=== PATIENT | female | born 1940 | race Caucasian/White ===

== ENCOUNTER 2017-05-09 21:42 | Inpatient (IN) ==
[2017-05-09] MEDS ORDERED: SODIUM CHLORIDE 0.9% 500 ML IV STA (23:03)
[2017-05-09 23:31] LABS: Basophils # 0.1 10*3/uL (0.0-0.2); Basophils % 0.7 % (0.0-0.8); Eosinophils # 0.5 10*3/uL (0.0-0.87); Eosinophils % 6.9 % (0.00-10.9); Hematocrit 36.8 VOL% (35.7-47.0); Hemoglobin 12.3 GM/DL (12.0-16.0); Immature Granulocytes % 0.3 %; Immature Granulocytes Absolute 0.02 #; Lymphocytes # 1.8 10*3/uL (1.4-4.0); Lymphocytes % 27.4 % (21.3-54.2); Mean Corpuscular HGB Conc 33.4 GM/DL (32-36); Mean Corpuscular Hemoglobin 31 PG (27-34); Mean Corpuscular Volume 91.3 FL (87-102); Mean Platelet Volume 9.7 FL (9.6-12.0); Monocytes # 0.5 10*3/uL (0.11-0.8); Monocytes % 7.5 % (1.7-12.7); Neutrophils # 3.8 10*3/uL (1.4-7.4); Neutrophils % 57.2 % (38.7-73.9); Platelet Count 238 T/CUMM (130-400); Red Blood Count 4.03 MC/CUMM (3.8-5.5); Red Cell Distribution Width 14.1 % (9.3-17.3); White Blood Count 6.7 T/CUMM (4-12)
[2017-05-09 23:43] LABS: PT Patient Result 10.4 SECS
[2017-05-09 23:55] LABS: Ammonia 23 UMOL/L (11-32)
[2017-05-09 23:56] LABS: Alanine Aminotransferase 16 U/L (13-56); Albumin 3.1 G/DL (3.4-5.0); Alkaline Phosphatase 137 U/L (45-117); Aspartate Amino Transferase 12 U/L (0-37); Bilirubin,Total < 0.39 MG/DL (0.2-1.0); Blood Urea Nitrogen 27 MG/DL (7-18); Glucose 119 MG/DL (74-106); Magnesium 2.3 MG/DL (1.8-2.4); Sodium 143 MMOL/L (136-145); Total Protein 5.8 G/DL (6.4-8.3); Troponin I Only < 0.015 NG/ML (0.00-0.045)
[2017-05-09 23:56] LABS: Apearance,Urine CLEAR (Clear); Bacteria,Urine Occasional /HPF (Few); Bilirubin,Urine Negative (Negative); Blood, Urine Small mg/dL (Negative); Glucose,Urine (UA) Negative (Negative); Ketones,Urine 5 mg/dL (Negative); Mucus,Urine Many /LPF (Occasional); Nitrite,Urine Negative (Negative); Protein,Urine 30 MG/DL; RBC,Urine <1 /HPF (0-4); Squamous Epithelial Cell,Urine Occasional /HPF (0-10); Urine Color Yellow (Yellow); Urine Specific Gravity 1.031 (1.001-1.035); WBC,Urine 2 /HPF (0-6)
[2017-05-10 00:08] LABS: Barbiturates Screen,Urine Negative (Negative); Benzodiazepines Screen,Urine Positive (Negative); Cannabinoid Screen,Urine Negative (Negative); Opiate Screen,Urine Negative (Negative); Phencyclidine Screen,Urine Negative (Negative)
[2017-05-10 00:12] LABS: Prolactin 9.4 NG/ML
[2017-05-10] MEDS ORDERED: PHENYTOIN INJ 1,000 MG in SODIUM CHLORIDE 0.9% 100 ML IV STA (00:52)
--- NOTE | 2017-05-10 00:59 | Emergency Department Note ---
Tami Loving Mantricia, am scribing for, and in the presence of, Dawit Rose MD 23:20. Milton Loving Charles R, MD, personally performed the services described in this documentation, ascribed by Robin Garrett in my presence, and it is both accurate and complete . Arrival - Arrival Chief Complaint: Altered Mental Status Stated Complaint: altered mental status ED Nursing Triage Note: confusion, "stares into space", unable to identify family members Mode of Arrival: Stretcher Limitations: Altered Mental Status Source: Significant other, Family Time Seen by Provider: 05/09/17 22:33 - History of Present Illness HPI Narrative: Pt is a 77 y/o female arriving to ED for evaluation of AMS that onset 1500 today. Family states that pt has been, "staring into face," very sleepy, confused, and unable to talk. They report that this is unusual of her, being that she is usually the talker of the family. states that he was here at hospital,today, for an EKG and normally pt usually asks the doctors questions ; however, he noticed that she was speechless and was not able to recall anything about the visit to her daughter. Pt had skin cancer removed yesterday; daughter initially thought that pt was still under the antihistamine but realized that it had been well over the hours for it to had worn off. She states that pt slept all day yesterday after her surgery and all night. Pt has a PMHx of [place], leg seizures, and hand tremors. 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 Arguelles and pt is currently taking Plavix. Family denies that pt has taken any narcotics. At time of exam, pt is easily aroused and seems to want to respond to questions, but cannot. No other complaints were reported to ED. Onset (ago): hour(s) Consistency: constant Allergies/Adverse Reactions: Allergies Allergy/AdvReac Type Severity Reaction Status Date / Time No Known Allergies Allergy Unverified 02/06/17 14:00 Home Medications: Home Medications Medication Instructions Recorded Confirmed Type Amitriptyline HCl 75 mg PO QPM 02/06/17 02/06/17 History Amlodipine Besylate 5 mg PO DAILY 02/06/17 02/06/17 History Clopidogrel [Plavix] 75 mg PO DAILY 02/06/17 02/06/17 History Levothyroxine Tab [Synthroid Tab] 50 mcg PO QAM 02/06/17 02/06/17 History Losartan Potassium 100 mg PO DAILY 02/06/17 02/06/17 History Metoprolol Tartrate Tab [Lopressor 25 mg PO BID 02/06/17 02/06/17 History Tab] Montelukast Tab [Singulair Tab] 10 mg PO BEDTIME 02/06/17 02/06/17 History PARoxetine HCl [Paroxetine HCl] 40 mg PO QAM 02/06/17 02/06/17 History Phenytoin ER Cap [Dilantin Cap] 200 mg PO BID 02/06/17 02/06/17 History Spironolactone 25 mg PO DAILY 02/06/17 02/06/17 History Pantoprazole Tab [Protonix Tab] 40 mg PO DAILY #30 tablet 02/07/17 Rx Review of System - Review of System ROS unobtainable: due to mental status 12 point system: reviewed and no additional remarkable complaints except as stated - Review of System Respiratory: Absent: cough Cardiovascular: Absent: chest pain Gastrointestinal: Absent: abdominal pain, nausea, vomiting, diarrhea Neurological: Present: confusion. Absent: headache, weakness Medical,Surgical,& Family Hx - Medical History Cardio: History of: CAD, Hypertension, [place] Endocrine: History of: Thyroid Disorder Gastrointestinal: History of: GERD - Surgical History Cardiac Surgeries: Sugical HX of: Cardiac Catheterization (stents) Reproductive Surgeries: Surgical HX of;: Hysterectomy - Family History Family History: Reports;: Family Heart Disease, Family Hypertension - Social History Smoking Status: Never smoker Frequency of Alcohol Use: None Type of Drug Use: None Exam Vital Signs: Vital Signs Temperature 98.9 F 05/09/17 21:45 Pulse Rate 54 L 05/09/17 22:20 Respiratory Rate 20 05/09/17 22:20 Blood Pressure 160/77 05/09/17 22:20 O2 Sat by Pulse Oximetry 94 L 05/09/17 22:20 - Head Head exam: Present: atraumatic, normocephalic, normal inspection - Eye Eye exam: Present: normal appearance, PERRL, EOMI - ENT ENT exam: Present: normal exam, normal oropharynx, mucous membranes moist, TM's normal bilaterally, normal external ear exam - Neck Neck exam: Present: normal inspection, full ROM, trachea midline. Absent: tenderness - Chest Chest inspection: Present: normal inspection, symmetric chest wall rise. Absent : tenderness - Respiratory Respiratory exam: Present: normal lung sounds bilaterally - Cardiovascular Cardiovascular exam: Present: regular rate, normal rhythm, normal heart sounds - Abdominal Exam Abdominal exam: Present: soft, normal bowel sounds. Absent: distention, tenderness, guarding, rebound - Extremities Exam Extremities exam: Present: normal inspection, full ROM, normal capillary refill , other (negative Babinski's Sign test; +1 LE edema bilat). Absent: tenderness , pedal edema - Back Exam Back exam: Present: normal inspection, full ROM. Absent: tenderness - Neurological Exam Neurological exam: Present: reflexes normal. Absent: alert, oriented X3 - Psychiatric Psychiatric exam: Present: normal affect, normal mood - Skin Skin exam: Present: warm, dry, intact, normal color Course - Reevaluation(s) Reevaluation #1: Patient reexamined she is doing slightly better still talking out of her head but she is now talking earlier she was had. Expressive aphasia Time: 00:56 - Consultations Consultation #1: Hospitalist will admit patient Time: 00:57 Results - Labs CBC & BMP: 05/09/17 23:13 05/09/17 23:13 Lab Results: I have reviewed the patients labs - EKG EKG results: interpreted by VIRALD - Impressions EKG shows right bundle branch block bradycardia - Diagnostic Findings Procedure: Chest x-ray: image reviewed by me (Negative), CT: report reviewed by me, image reviewed by me (CT head negative) Critical Care Time Critical Care Time: Yes Total Critical Care Time: 60 Disposition Clinical Impression: Altered mental status, Subtherapeutic serum dilantin level, Confusion, Expressive aphasia, History of seizure disorder, Mild dehydration Case discussed with: patient, patient's family Disposition: Still a Patient Condition: Stable Time of Disposition: 00:56 NIH Stroke Score - Stroke Score Initial Assessment Level of Consciousness: Drowsy Level of Consciousness Questions: Both Incorrect Level of Consciousness Commands: Obeys Both Correctly Best Gaze: Normal Visual Leach: No Visual Loss Facial Palsy: Normal Motor - Right Arm: No Drift Motor - Left Arm: No Drift Motor - Right Leg: No Drift Motor - Left Leg: No Drift Limb Ataxia: Absent Sensory (Pin Prick): Normal Best Language: Severe Aphasia Dysarthria: Near Unintelligible or Worse Extinction / Inattention (Neglect): No Neglect NIH Stroke Score: 7
[2017-05-10] MEDS ORDERED: PHENYTOIN 250 MG/5 ML VIAL IV ONE (01:16)
[2017-05-10] MEDS ORDERED: ACETAMINOPHEN 325 MG TABLET PO PRN (01:47)
[2017-05-10] MEDS ORDERED: ONDANSETRON 4 MG/2 ML VIAL IV PRN (01:47)
--- NOTE | 2017-05-10 01:56 | Hospitalist History & Physical ---
Assessment and Plan (1) TIA (transient ischemic attack) Status: Acute Assessment and plan: Admit to telemetry. Consult neurology. Resume home medications including Plavix. Check lipid panel, hemoglobin A1c. Carotid ultrasound and 2D echo. Consider MRI. Symptoms have resolved. Current Visit: Yes (2) Altered mental status Status: Resolved Current Visit: Yes (3) Subtherapeutic serum phenytoin level Status: Acute Assessment and plan: Patient received IV Dilantin in the emergency department. It does not appear that she had any seizure activity. Current Visit: Yes (4) Expressive aphasia Status: Resolved Assessment and plan: Expressive aphasia resolved by the time I saw her in the emergency department at 1:30 AM. Continue to monitor and workup for stroke. Current Visit: Yes (5) History of seizure disorder Status: Chronic Assessment and plan: Continue Dilantin Current Visit: Yes (6) Mild dehydration Status: Acute Assessment and plan: IV fluids ordered Current Visit: Yes History of Present Illness Chief complaint: AMS/Confusion History of present illness: Ms. Toribio is a 77 year old female presented to the ER for evaluation of AMS that onset 1500 today. Family states that pt has been, "staring into space," very sleepy, confused, and unable to talk. They report that this is unusual of her, being that she is usually the talker of the family. states that he was here at hospital,today, for an EKG and normally pt usually asks the doctors questions; however, he noticed that she was speechless and was not able to recall anything about the visit to her daughter. Pt had skin cancer removed yesterday- from her nose. Daughter initially thought that pt was still under the effects of the anesthesia but realized that the time frame was much longer than expected. The patient was reportedly well at 7 AM and deteriorated around 2:30 PM. She states that pt slept all day yesterday after her surgery and all night. Pt has a PMHx of [place], leg seizures, and hand tremors. 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 Arguelles and pt is currently taking Plavix. Family denies that pt has taken any narcotics. At time of exam, the patient's symptoms had resolved. Her speech was back to normal. I examined her at 1:30 in the morning in the emergency department with both of her daughters at the bedside. They report significant improvement in her symptoms. She will be admitted for workup of TIA versus stroke Home Medications Medication Instructions Recorded Confirmed Type Amitriptyline HCl 75 mg PO QPM 02/06/17 05/10/17 History Amlodipine Besylate 5 mg PO DAILY 02/06/17 05/10/17 History Clopidogrel [Plavix] 75 mg PO DAILY 02/06/17 05/10/17 History Levothyroxine Tab [Synthroid Tab] 50 mcg PO QAM 02/06/17 05/10/17 History Losartan Potassium 100 mg PO DAILY 02/06/17 05/10/17 History Metoprolol Tartrate Tab [Lopressor 25 mg PO BID 02/06/17 05/10/17 History Tab] Montelukast Tab [Singulair Tab] 10 mg PO BEDTIME 02/06/17 05/10/17 History PARoxetine HCl [Paroxetine HCl] 40 mg PO QAM 02/06/17 05/10/17 History Phenytoin ER Cap [Dilantin Cap] 200 mg PO BID 02/06/17 05/10/17 History Spironolactone 25 mg PO DAILY 02/06/17 05/10/17 History Pantoprazole Tab [Protonix Tab] 40 mg PO DAILY #30 tablet 02/07/17 05/10/17 Rx Allergies Allergy/AdvReac Type Severity Reaction Status Date / Time No Known Allergies Allergy Unverified 02/06/17 14:00 Medical,Surgical,& Family Hx - Medical History Cardio: History of: CAD, Hypertension, [place] Endocrine: History of: Thyroid Disorder Gastrointestinal: History of: GERD - Surgical History Cardiac Surgeries: Sugical HX of: Cardiac Catheterization (stents) Reproductive Surgeries: Surgical HX of;: Hysterectomy - Family History Family History: Reports;: Family Heart Disease, Family Hypertension - Social History Smoking Status: Never smoker Frequency of Alcohol Use: None Type of Drug Use: None Marital Status: Lives With:: Spouse Functional capacity: independent ambulation 12 point system: reviewed and no additional remarkable complaints except as stated - Constitutional Constitutional: Present: as per HPI Exam - Constitutional Vitals: Period Temp Pulse Resp BP Sys/Gonzalez Pulse Ox Last 24 Hr 98.9 F-98.9 F 54-54 20-20 160-190/77-86 94-95 Exam: Constitutional System: No distress. No tremulousness. Head: Normocephalic, atraumatic. Ears, Nose and Throat System: No pain or tenderness. No epistaxis or discharge Eyes System: Pupils equal, round, and reactive. Extraocular muscles intact. Neck: Supple, without adenopathy, No jugular venous distention. No thyromegaly, neck mass, or prior surgery apparent. Respiratory System: Chest clear to auscultation. Cardiovascular System: Heart with regular rate and rhythm. No murmur. GI System: Abdomen soft, nontender. Normo active bowel sounds present. Musculoskeletal System: limbs with no pedal edema. Full distal pulses. Neurological System: No discernable sensory deficit. No aphasia. Strength and sensation are equal in the bilateral upper and lower extremities Psychiatric System: Conversation is rational Results - Labs CBC & BMP: 05/10/17 03:06 05/10/17 03:06 Lab Results: I have reviewed the past 24 hour labs - Diagnostic Findings Procedure: Chest x-ray: image reviewed by me, report reviewed by me Quality Measures - Stroke Onset of Symptoms Date: 05/09/17 Onset of Symptoms Time: 15:00 Symptom Onset Unknown: No
[2017-05-10 02:05] LABS: Sedimentation Rate-Westergren 16 MM/HR (0-30)
[2017-05-10] MEDS: SODIUM CHLORIDE 0.9% 1,000 ML IV SCH ×2 (03:08→12:35)
[2017-05-10 04:07] LABS: Basophils % 0.7 % (0.0-0.8); Eosinophils # 0.4 10*3/uL (0.0-0.87); Eosinophils % 6.7 % (0.00-10.9); Hematocrit 36.7 VOL% (35.7-47.0); Hemoglobin 12.1 GM/DL (12.0-16.0); Immature Granulocytes % 0.5 %; Immature Granulocytes Absolute 0.03 #; Lymphocytes % 33.1 % (21.3-54.2); Mean Corpuscular Hemoglobin 30 PG (27-34); Mean Corpuscular Volume 91.8 FL (87-102); Mean Platelet Volume 10.1 FL (9.6-12.0); Monocytes # 0.5 10*3/uL (0.11-0.8); Monocytes % 7.9 % (1.7-12.7); Neutrophils % 51.1 % (38.7-73.9); Platelet Count 230 T/CUMM (130-400); White Blood Count 5.9 T/CUMM (4-12)
[2017-05-10 04:31] LABS: Calcium 8.8 MG/DL (8.5-10.1); Magnesium 2.3 MG/DL (1.8-2.4); Osmolality,Calculated 291.8 MOS/KG (273-304)
[2017-05-10 04:41] LABS: Risk Ratio 2.35; Thyroid Stimulating Hormone 3.1 uIU/ml (0.358-3.74); VLDL CHOLESTEROL 24.4 MG/DL
[2017-05-10] MEDS: ENOXAPARIN 40 MG/0.4 ML SYRINGE SUBCUT SCH (05:17)
--- NOTE | 2017-05-10 06:02 | CT Report ---
Exam: CT scan of brain without contrast Date: 05/09/2017 Indication: Mental status changes Comparison: 02/06/2017 Patient's classification: Emergency department Technical: Images were obtained from the skull base to the vertex without the use of intravenous contrast. Dose reduction was performed with decreasing kv and mA and automated exposure Total DLP: 1012.1. mGy*cm Findings: Study was initially reviewed by [facility]. The brainstem and cerebellum are unremarkable. Examination reveals old lacunar infarctions involving the basal ganglia regions bilaterally. Small vessel ischemic changes are present. There is hyperostosis frontalis interna changes present. There is inflammation within the left maxillary antrum. Mild inflammation in the ethmoid sinuses bilaterally. The frontal sinuses and right maxillary sinuses and mastoids are unremarkable. Vascular plaque is present. Calvarium is intact. Impression: 1. Diffuse small vessel ischemic change with multiple areas of old lacunar infarctions present. If further evaluation is warranted MRI may be more sensitive. 2. No obvious acute hemorrhage present. PROCEDURE INTERPRETED AT [facility] DEPARTMENT OF RADIOLOGY Final Report Signed by: Dr. Blake Harris
--- NOTE | 2017-05-10 06:26 | XRay Report ---
Exam: XR chest 1V portable Date: 05/09/2017 11:04 PM Indication: Altered mental status Comparison: 02/06/2017 Technical: AP portable Findings: Cardiomegaly present. External cardiac leads are present. No obvious consolidating infiltrate or effusion. The bony structures reveal no acute findings. Degenerative arthritic changes are present at the AC joints bilaterally Previous right axillary dissection clips noted. No pneumothorax. The mediastinum is intact. Impression: 1. Cardiomegaly without decompensation. 2. Previous surgical changes in the right axillary/breast region. PROCEDURE INTERPRETED AT [facility] DEPARTMENT OF RADIOLOGY Final Report Signed by: Dr. Blake Harris
--- NOTE | 2017-05-10 07:08 | Ultrasound Report ---
Exam: US carotid duplex BI Date: 05/10/2017 1:51 AM Indication: TIA Findings: Grayscale color flow analysis and spectral analysis imaging was performed with image stored and captured. Right Flow velocities centimeters per second Common carotid artery: 63 Proximal ICA: 45 Distal ICA: 59 External carotid artery: 112 Vertebral artery: 40 ICA/CCA ratio: 0.9 Measurements in millimeters Distal ICA: 5.6 Left: Flow velocities centimeters per second Common carotid artery: 51 Proximal ICA: 45 Distal ICA: 51 External carotid artery: 93 Vertebral artery: 48 ICA/CCA ratio: 1. Measurements in millimeters Distal ICA: 4.3 Triphasic waveforms are present. No high-grade stenosis or occlusions are significant plaque present with normal color flow. Impression: 1. 0-15% stenosis bilaterally. Today studies were performed utilizing indirect NASCET criteria The ultrasound images were stored and captured PROCEDURE INTERPRETED AT [facility] DEPARTMENT OF RADIOLOGY Final Report Signed by: Dr. Blake Harris
--- NOTE | 2017-05-10 08:56 | EKG Report ---
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
[2017-05-10] MEDS ORDERED: amLODIPine 5 MG TABLET PO SCH (09:00)
[2017-05-10] MEDS: LEVOTHYROXINE 50 MCG TABLET PO SCH (09:04)
[2017-05-10] MEDS: PHENYTOIN ER 100 MG CAPSULE PO SCH ×2 (09:05→20:56)
[2017-05-10] MEDS: CLOPIDOGREL 75 MG TABLET PO SCH (09:05)
[2017-05-10] MEDS: METOPROLOL TARTRATE 25 MG TABLET PO SCH ×2 (09:05→22:39)
[2017-05-10] MEDS: LOSARTAN 50 MG TABLET PO SCH (09:05)
--- NOTE | 2017-05-10 14:28 | Hospitalist Progress Note ---
Assessment and Plan (1) Confusion Status: Acute Assessment and plan: 1)confusion spell resolved- head cT ok. Dr oshea to see. consider MRI. Consider EEG. Holding psych meds. 2)dehydration- resolved 3)expressive aphasia- part of confusion spell- may have had a TIA. 4)HTN- Bp ok, increase Norvasc to 10mg a day. 5)meds reconciled. family present today who were with her yesterday. Discussed what they saw and thought about the spell, and their questions were answered. Current Visit: Yes (2) History of seizure disorder Status: Chronic Current Visit: Yes (3) Mild dehydration Status: Acute Current Visit: Yes Hospitalist: Subjective Interval history: Mrs Toribio is feeling better today. Her family describes a long period of confusion yesterday and she says "it felt like a dream" and she is unable to remember details of the day yesterday after waking up. She has no focal neuro compalints today. No one obwerved any signs of seizures. She has had no new meds. She had a skin cancer removed from her nose the day before yesterday but was well immediately after and did not fill her pain med prescription. Dr Oshea to see. Exam - Constitutional Vitals: Period Temp Pulse Resp BP Sys/Gonzalez Pulse Ox Last 24 Hr 97.2 F-98.9 F 50-58 16-20 128-190/66-86 93-96 General appearance: no acute distress, over weight - Head Head exam: Present: normocephalic, atraumatic - Eye Eye exam: Present: EOMI. Absent: scleral icterus - Respiratory Respiratory exam: Present: clear to auscultation bilaterally - Cardiovascular Cardiovascular exam: Present: regular rate and rhythm - GI/Abdominal GI/Abdominal exam: Present: normal bowel sounds, soft. Absent: tenderness - Extremities Exam Extremities exam: Absent: edema Results - Labs CBC & BMP: 05/10/17 03:06 05/10/17 03:06 Lab Results: I have reviewed the past 24 hour labs Quality Measures - Stroke Onset of Symptoms Date: 05/09/17 Onset of Symptoms Time: 15:00 Symptom Onset Unknown: No
[2017-05-10] MEDS ORDERED: amLODIPine 5 MG TABLET PO ONE (14:32)
[2017-05-10] MEDS: levETIRAcetam 500 MG TABLET PO SCH ×2 (15:12→20:56)
--- NOTE | 2017-05-10 16:12 | Neurology Consult Note ---
History of Present Illness History of present illness: 77 years old right-handed white lady with past medical history significant for myocardial infarction, seizures and to the hospital with acute onset of speech difficulties which lasted for several hours along with confusion and disorientation. Patient never had similar symptoms before. Symptoms started around 4 or 5:00 in the afternoon. Patient reported that she just could not get words out. She did not try to get up or walk. Denies any numbness or tingling. Symptoms lasted till 2 in the morning however by the time she got to the ER around 10 in the evening symptoms started better. Apparently she had a history of seizures and takes Dilantin and Keppra on a regular basis. She seems to be doing much better now. reported that she was very confused and could not recognize family members. Her UA is positive for benzos and Dilantin level is 6.7. CT of the head is unremarkable. Carotid ultrasound is negative. Never had similar symptoms before. Home Medications Medication Instructions Recorded Confirmed Type Amitriptyline HCl 75 mg PO QPM 02/06/17 05/10/17 History Amlodipine Besylate 5 mg PO DAILY 02/06/17 05/10/17 History Clopidogrel [Plavix] 75 mg PO DAILY 02/06/17 05/10/17 History Levothyroxine Tab [Synthroid Tab] 50 mcg PO QAM 02/06/17 05/10/17 History Losartan Potassium 100 mg PO DAILY 02/06/17 05/10/17 History Metoprolol Tartrate Tab [Lopressor 25 mg PO BID 02/06/17 05/10/17 History Tab] Montelukast Tab [Singulair Tab] 10 mg PO BEDTIME 02/06/17 05/10/17 History PARoxetine HCl [Paroxetine HCl] 40 mg PO QAM 02/06/17 05/10/17 History Phenytoin ER Cap [Dilantin Cap] 200 mg PO BID 02/06/17 05/10/17 History Spironolactone 25 mg PO DAILY 02/06/17 05/10/17 History Pantoprazole Tab [Protonix Tab] 40 mg PO DAILY #30 tablet 02/07/17 05/10/17 Rx levETIRAcetam TAB [Keppra Tab] 500 mg PO BID 05/10/17 05/10/17 History Allergies Allergy/AdvReac Type Severity Reaction Status Date / Time No Known Allergies Allergy Unverified 02/06/17 14:00 12 point system: reviewed and no additional remarkable complaints except as stated Medical,Surgical,& Family Hx - Medical History Cardio: History of: CAD, Hypertension, [place] Endocrine: History of: Thyroid Disorder Gastrointestinal: History of: GERD - Surgical History Cardiac Surgeries: Sugical HX of: Cardiac Catheterization (stents) Reproductive Surgeries: Surgical HX of;: Hysterectomy - Family History Family History: Reports;: Family Heart Disease, Family Hypertension Denies;: Family Anesthesia Reaction, Family Cancer, Family Diabetes, Family Hematology, Family Psychiatric Problems, Family Stroke - Social History Smoking Status: Never smoker Frequency of Alcohol Use: None Type of Drug Use: None Exam - Constitutional Vitals: Period Temp Pulse Resp BP Sys/Gonzalez Pulse Ox Last 24 Hr 97.2 F-98.9 F 50-58 16-20 128-190/66-86 93-96 Exam: GENERAL: Patient is in no acute distress. NECK: Neck is supple. There is no JVD. No carotid bruits present. No thyroid masses. CVS: First and second heart sounds are normal. There is no S3 present. Regular rate and rhythm. RESPIRATORY: Lungs are clear to auscultation without any rales or rhonchi. ABDOMEN: Soft and non-tender. Bowel sounds are present. There is no hepatosplenomegaly. EXT: There is no palpable edema. Peripheral pulses are present. Skin: No rashes Central Nervous system: General: Alert, awake and Oriented x 3 Speech: Fluent Comprehension: Intact and normal Facial expressions: Normal Cranial Nerves: CN1/Olfactory: Normal CN II/ Optic: Normal, Visual Leach unreliable CN III, and : JULIANNA & EOMI CN V: Normal & intact CN VII: face is symmetric CNVIII: Normal CN XI/X/XI/XII: Intact and Normal Motor: Bulk and Tone is normal. Strength in the right 5/5 Strength in the left 5/5 Sensory: Grossly intact for all the modalities of PP, LT and temp sense Reflexes: 1+ and symmetrical Cerebellar function: Normal finger to nose and heel to lizama testing. Toes: Equivocal Gait: Able to get up and walk Results - Labs CBC & BMP: 05/10/17 03:06 05/10/17 03:06 Assessment and Plan (1) History of seizure disorder Status: Chronic Assessment and plan: Continue Keppra and Dilantin at the same dose EEG Current Visit: Yes (2) TIA (transient ischemic attack) Status: Acute Assessment and plan: Continue Plavix. Add aspirin MRI of the brain Thank you for the consult Current Visit: Yes
[2017-05-10] MEDS ORDERED: MONTELUKAST 10 MG TABLET PO SCH (21:00)
[2017-05-11] MEDS: SODIUM CHLORIDE 0.9% 1,000 ML IV SCH (01:14)
[2017-05-11] MEDS: ENOXAPARIN 40 MG/0.4 ML SYRINGE SUBCUT SCH (02:22)
[2017-05-11] MEDS ORDERED: amLODIPine 10 MG TABLET PO SCH (09:00)
[2017-05-11] MEDS ORDERED: ASPIRIN EC 81 MG TABLET PO SCH (09:00)
[2017-05-11] MEDS: LEVOTHYROXINE 50 MCG TABLET PO SCH (09:02)
[2017-05-11] MEDS: CLOPIDOGREL 75 MG TABLET PO SCH (09:02)
[2017-05-11] MEDS: LOSARTAN 50 MG TABLET PO SCH (09:02)
[2017-05-11] MEDS: levETIRAcetam 500 MG TABLET PO SCH (09:02)
[2017-05-11] MEDS: METOPROLOL TARTRATE 25 MG TABLET PO SCH (09:02)
[2017-05-11] MEDS: PHENYTOIN ER 100 MG CAPSULE PO SCH (09:02)
[2017-05-11] MEDS ORDERED: ASPIRIN CHEW 81 MG TABLET PO ONE (09:05)
--- NOTE | 2017-05-11 09:16 | Neurology Progress Note ---
Neurology - PN : Subjective Interval history: Mr. Baeza seems to be doing well. Feeling much better. No new problems reported. EEG is pending Exam (Progress Note) - Constitutional Vitals: Period Temp Pulse Resp BP Sys/Gonzalez Pulse Ox Last 24 Hr 97.3 F-98.3 F 55-67 16-20 152-202/69-97 90-97 Exam: GENERAL: Patient is in no acute distress. NECK: Neck is supple. There is no JVD. No carotid bruits present. No thyroid masses. CVS: First and second heart sounds are normal. There is no S3 present. Regular rate and rhythm. RESPIRATORY: Lungs are clear to auscultation without any rales or rhonchi. ABDOMEN: Soft and non-tender. Bowel sounds are present. There is no hepatosplenomegaly. EXT: There is no palpable edema. Peripheral pulses are present. Skin: No rashes Central Nervous system: General: Alert, awake and Oriented x 3 Speech: Fluent Comprehension: Intact and normal Facial expressions: Normal Cranial Nerves: CN1/Olfactory: Normal CN II/ Optic: Normal, Visual Leach unreliable CN III, and : JULIANNA & EOMI CN V: Normal & intact CN VII: face is symmetric CNVIII: Normal CN XI/X/XI/XII: Intact and Normal Motor: Bulk and Tone is normal. Strength in the right 5/5 Strength in the left 5/5 Sensory: Grossly intact for all the modalities of PP, LT and temp sense Reflexes: 1+ and symmetrical Cerebellar function: Normal finger to nose and heel to lizama testing. Toes: Equivocal Gait: Able to get up and walk Results - Labs CBC & BMP: 05/10/17 03:06 05/10/17 03:06 Assessment and Plan (1) History of seizure disorder Status: Chronic Assessment and plan: Continue Keppra and Dilantin at the same dose EEG is pending Current Visit: Yes (2) TIA (transient ischemic attack) Status: Acute Assessment and plan: Continue Plavix and aspirin MRI of the brain is pending Current Visit: Yes Quality Measures - Stroke Onset of Symptoms Date: 05/09/17 Onset of Symptoms Time: 15:00 Symptom Onset Unknown: No
--- NOTE | 2017-05-11 09:48 | Discharge Summary ---
Hospital Course - Hospital Course Hospital Course: Mrs Toribio had a daylong spell of word finding problems and confusion the day of admission. Once here she came back to herself and there have been no further events or neurologic changes. Her MRI shows an acute stroke in Left MCA distribution. Her BP has been up since admission. I have increased her Norvasc to 10mg a day and restarted her Aldactone. I will also send her home on hydralazine po tid. She will monitor her BP at home and follow up with Dr Arguelles who manages her hypertension. Additionally I will order an outpatient MRA of head and neck. Dr Oshea has seen her and will review the EEG. She will follow up with Dr Healy her neurologist as an outpatient. She will also see her PCP Nurse Jakob. - Time spent with patient Time with patient DS: Greater than 30 minutes (review of test results, exam, documentation, medicine reconciliation) Diagnosis - Discharge Diagnosis (1) Confusion Status: Resolved (2) History of seizure disorder Status: Chronic (3) Mild dehydration Status: Resolved Specialty Discharge - Follow Up or Referrals Follow up with: Prem Healy [REFERRING DOCTOR/PRACTITIONER] - 05/24/17 11:15 am Kamilla Arguelles MD [Physician] - 1 Week (BP check) NurseJakob [Other[facility] ([facility] Discharge Plan - Discharge Data Disposition: Disch To Home/Self Care Condition at Discharge: Stable Discharge Diet: diabetic diet, heart healthy, low fat, low cholesterol Activity: resume usual activities as tolerated - Discharge Medications New Aspirin EC Tab 81 mg PO DAILY tablet hydrALAZINE TAB [Apresoline Tab] 25 mg PO TID #90 tablet amLODIPine [Norvasc] 10 mg PO DAILY #30 tablet Metoprolol Tartrate Tab [Lopressor Tab] 25 mg PO BID #60 tablet Continue Amitriptyline HCl 75 mg PO QPM Levothyroxine Tab [Synthroid Tab] 50 mcg PO QAM Losartan Potassium 100 mg PO DAILY Montelukast Tab [Singulair Tab] 10 mg PO BEDTIME Phenytoin ER Cap [Dilantin Cap] 200 mg PO BID Spironolactone 25 mg PO DAILY Pantoprazole Tab [Protonix Tab] 40 mg PO DAILY #30 tablet levETIRAcetam TAB [Keppra Tab] 500 mg PO BID Clopidogrel [Plavix] 75 mg PO DAILY PARoxetine HCl [Paroxetine HCl] 40 mg PO QAM Discontinued Amlodipine Besylate 5 mg PO DAILY Metoprolol Tartrate Tab [Lopressor Tab] 25 mg PO BID - Follow Up or Referral Follow Up: Your, PCP [Other] - 1 Week Prem Healy [REFERRING DOCTOR/PRACTITIONER] - 05/24/17 11:15 am - Forms/Instructions Additional Discharge Instructions: MRA head and neck for recent stroke. Exam - Constitutional Vitals: Period Temp Pulse Resp BP Sys/Gonzalez Pulse Ox Last 24 Hr 97.3 F-98.3 F 55-67 16-20 152-202/69-97 90-97 General appearance: no acute distress, over weight - Head Head exam: Present: normocephalic, atraumatic - Eye Eye exam: Present: EOMI. Absent: scleral icterus - Respiratory Respiratory exam: Present: clear to auscultation bilaterally - Cardiovascular Cardiovascular exam: Present: regular rate and rhythm - GI/Abdominal GI/Abdominal exam: Present: normal bowel sounds, soft. Absent: tenderness - Extremities Exam Extremities exam: Absent: edema - Neurological Exam Neurological exam: Present: alert, oriented X3, CN II-XII intact. Absent: motor sensory deficit - Skin Skin exam: Present: warm, dry Discharge Results Procedures and tests throughout hospitalization: Pending Orders 05/09/17 23:29 Blood Culture Stat 05/10/17 16:14 MR head/brain wo con Routine 05/10/17 16:15 NE EEG adult awake/drowsy Routine Labs on day of discharge: Preliminary micro results at discharge 05/09/17 23:28 Blood Culture - Preliminary Blood Gram Positive Cocci 05/09/17 23:29 Blood Culture - Preliminary Blood No growth at 1 day DS: Provider Date of admission: 05/10/17 01:40 Primary care physician: Ye Iglesias Attending physician on admission: Kathie Palacios MD Consults: 05/10/17 01:51 Consult to Outpatient Therapy [CONS] Routine Reason for Outpatient Therapy: Occupational Therapy Consult Comment: tia Consult to Physical Therapy [CONS] Routine Reason for Physical Therapy: Evaluate and Treat Start Therapy: Today Consult to Physician [CONS] Routine Comment: tia Consulting Provider: Jose Ramon Oshea Consult to Specialist Group: Neurology Consult Notification Comment: LEFT MESSAGE AT 0835 05/10/17 14:28 OT [Consult to Occupational Therapy] [CONS] Routine Reason for Occupational Therapy: Evaluate and Treat Discharging clinician: Meeta Vázquez MD
[2017-05-11] MEDS ORDERED: PARoxetine 20 MG TABLET PO SCH (10:00)
--- NOTE | 2017-05-11 12:14 | Hospitalist Progress Note ---
Assessment and Plan - Time spent with patient Time spent with patient: Less than 30 minutes (1) Confusion Status: Acute Assessment and plan: alert;no acute distress; EEG was obtained this a.m.; scheduled for MRI today; discussed with Dr Vázquez probable discharge home today after MRI. Current Visit: Yes Hospitalist: Subjective Interval history: patient feels some better this a.m. sitting up in chair; verbalized she is ready to go home; no acute distress noted. verbalized she had her EEG this a.m. and will go for her MRI today. Exam - Constitutional Vitals: Period Temp Pulse Resp BP Sys/Gonzalez Pulse Ox Last 24 Hr 97.3 F-98.3 F 55-67 16-20 152-202/69-97 90-97 General appearance: no acute distress, over weight - Head Head exam: Present: normal inspection - Eye Eye exam: Present: EOMI Pupils: Present: JULIANNA - Neck Neck exam: Present: normal inspection - Respiratory Respiratory exam: Present: clear to auscultation bilaterally - Cardiovascular Cardiovascular exam: Present: regular rate and rhythm - GI/Abdominal GI/Abdominal exam: Present: normal bowel sounds. Absent: guarding, tenderness, rebound - Extremities Exam Extremities exam: Absent: edema - Neurological Exam Neurological exam: Present: alert, oriented X3 - Psychiatric Psychiatric exam: Present: normal affect - Skin Skin exam: Present: normal color, warm, dry Results - Labs CBC & BMP: 05/10/17 03:06 05/10/17 03:06 Lab Results: I have reviewed the past 24 hour labs Quality Measures - Stroke Onset of Symptoms Date: 05/09/17 Onset of Symptoms Time: 15:00 Symptom Onset Unknown: No Specialty Discharge - Follow Up or Referrals Follow up with: Your, PCP [Other] - 1 Week Prem Healy [REFERRING DOCTOR/PRACTITIONER] - 05/24/17 11:15 am
[2017-05-11 12:40] VITALS: BP 160/76
--- NOTE | 2017-05-11 14:20 | Magnetic Resonance Report ---
History: Acute onset slurred speech. Confusion Date: 05/11/2017 Study: MRI brain without IV contrast Comparison exam: No previous MRI brain currently available The brain was imaged in 3 planes on the 1.5 Mora magnet without IV contrast, to include diffusion, T2, FLAIR, gradient echo, and T1-weighted sequences. The exam was performed within 24 hours of admission. The ventricles are midline in position without evidence of hydrocephalus. There is a region of restricted diffusion compatible with acute ischemia between 6 hours and 4 days old involving the posterior aspect of the left frontal lobe and extending into the left galvez radiata and left putamen region. This measures at least 3 cm maximum diameter. There is no parenchymal hemorrhage. There is a moderate amount of patchy increased FLAIR and T2 signal in the periventricular white matter without mass effect compatible with changes of small vessel disease. Small areas of chronic lacunar infarction are noted in the body of either caudate nucleus as well as in the head of the left caudate nucleus and bilateral putamen. There is no extra-axial hematoma. There is a normal flow void in the parasagittal sinus. There is no gross flow abnormality in the [place] area. There is evidence to suggest remote cataract surgery bilaterally. Impression: Area of acute ischemia in a left MCA distribution involving the posterior aspect of the left frontal lobe, extending into the galvez radiata and lenticular nuclei on the left. No acute hemorrhage. Chronic ischemic changes otherwise PROCEDURE INTERPRETED AT [facility] DEPARTMENT OF RADIOLOGY Final Report Signed by: Dr. Ida Mendez
[2017-05-12] MEDS ORDERED: SPIRONOLACTONE 25 MG TABLET PO SCH (09:00)
--- NOTE | 2017-05-12 09:03 | Physician Query Form ---
CLICK EDIT DOCUMENT TO SELECT QUERY ANSWER --> OK --> SIGN Shellie Scott RN, CCDS Certified Clinical Party Plan Sales Unit Advisor W) [phone] (f) [phone] [email or web address] PROVIDERS: Make your selection(s) from the choices in EACH section by typing an "x" and enter comments in the comment section. Please use your independent medical judgment in providing your response. This request does not imply that any particular answer is desired or expected. CLINICAL INDICATORS: (Providers should not edit this section) The medical record indicates that the patient was admitted with AMS, confusion, history of sz, " "staring into face,"very sleepy, confused, and unable to talk" and the patient had a CT/ MRI of the brain. ACUITY: ( x) Acute ( ) Acute on Chronic ( ) Chronic ( ) Clinically unable to determine NATURE: ( x) Delirium due to general medical condition ( ) Dementia ( ) Encephalopathy ( ) Acute encephalopathy due to stroke ( ) Unconscious ( ) Transient level of awareness ( ) Comatose ( ) Locked-in State ( ) Persistent Vegetative State ( ) Other, please specify: ( ) Clinically unable to determine Please indicate the underlying cause of the altered mental status (CHECK ALL THAT APPLY): ( ) Baseline dementia ( ) Alzheimer's disease ( ) Parkinson's disease ( ) Lewy body dementia ( x) Acute stroke ( ) Late effect of stroke ( ) Reactive (from emotional stress, psychological trauma) ( ) Due to narcotics/other drugs ( ) Post procedural delirium ( ) Transient ischemic attack ( ) Generalized cerebral edema ( ) Normal pressure hydrocephalus ( ) Psychiatric illness ( ) Other, please specify: ( ) Clinically unable to determine Please indicate if there is an infection, sepsis, dehydration or specific organ failure that is causing the dementia. Be specific with clarifying the relationship between that process and the mental status change. COMMENTS: PLEASE ALSO DOCUMENT RESPONSE IN PROGRESS NOTES AND/OR DISCHARGE SUMMARY Use of terms such as suspected, likely, or probable (associated with a specific diagnosis that is being evaluated, monitored, or treated as if it exists) are acceptable and can be restated in the discharge summary if not ruled out. MTDD
--- NOTE | 2017-05-31 17:06 | Electroencephalogram ---
HISTORY: A 77 years old female with a history of change in mental status. INTRODUCTION: A digital EEG was performed using the standard 10/20 system of electrode placement wit h one channel of EKG monitoring. Photic stimulation is performed. DESCRIPTION OF RECORD: The background is slightly disorganized, but consists of 8 to 8.5 hertz low a mplitude bilateral symmetrical rhythm. Photic stimulation elicits a driving response at slower flash frequencies. Hyperventilation was not performed. There are no focal, sharp wave, spike and wave ac tivity seen. Heart rate is 50 beats per minute. IMPRESSION: NORMAL EEG DURING WAKEFULNESS. CLINICAL CORRELATION: No focal nor epileptiform features are seen. Normal EEG does not rule out the diagnostic possibility of epilepsy. Clinical correlation is suggested.
== END 2017-05-11 16:13 | disposition home or self-care (01) | DRG 65 ==
LOC: EDBD → EDUNIT# → N.ED 21:42 → N.EDINP 05-10 01:40 → SUATTDRO 05-10 01:40 → N.TELEN 05-10 02:04
PROVIDERS: ADMIT Family Medicine; ATTEND Internal Medicine